=== PATIENT | female | born 1960 | race Caucasian/White ===

== ENCOUNTER 2023-08-17 10:16 | Emergency (ER) | payer BC, SELFPAY ==
[2023-08-17 10:45] VITALS: BP 137/74
[2023-08-17 11:07] LABS: % Basophils 0.3 % (0-2); % Eosinophils 1.3 % (0-6); % Immature Granulocytes 0.3 % (0-0.5); % Lymphocytes 15.5 % (20.5-51.1); % Monocytes 3.4 % (1.7-9.3); % Neutrophils 79.2 % (42.2-75.2); Absolute Eosinophils 0.1 10^3/uL (0-0.7); Absolute Monocytes 0.2 10^3/uL (0.1-0.6); Absolute Neutrophils 5.3 10^3/uL (1.4-6.5); Hematocrit 37.9 % (37.0-47.0); Hemoglobin 12.9 g/dL (12.0-16.0); Mean Corpuscular Hgb 27.4 pg (27.0-31.0); Mean Corpuscular Volume 80.5 fL (81.0-99.0); Mean Platelet Volume 10.1 fL (7.4-10.4); Nucleated Red Blood Cells % 0 %; Platelet Count 180 10^3/uL (130-400); Red Blood Cell Count 4.71 10^6/uL (4.20-5.40); Red Cell Dist. Width 13.5 % (11.5-14.5); White Blood Cell Count 6.7 10^3/uL (4.8-10.8)
[2023-08-17 11:21] LABS: ALT (SGPT) 40 U/L (0-35); AST (SGOT) 36 U/L (14-36); Albumin 4.2 g/dl (3.5-5.0); Alkaline Phosphatase 126 U/L (38-126); Blood Urea Nitrogen 16 mg/dl (7-17); Calcium 9.1 mg/dl (8.4-10.2); Carbon Dioxide 22 mmol/L (22-30); Chloride 105 mmol/L (98-107); Glucose 147 mg/dl (70-99); Potassium 4.1 mmol/L (3.5-5.1); Sodium 135 mmol/L (135-145); Total Bilirubin 0.4 mg/dl (0.2-1.3); Total Protein 6.7 g/dl (6.3-8.2); eGFR > 60.00
[2023-08-17 11:23] LABS: COVID-19 Antigen Negative (Negative)
[2023-08-17 11:33] LABS: Lactic Acid 1.3 mmol/L (0.7-2.0)
[2023-08-17 13:49] VITALS: BP 126/66
[2023-08-17] MEDS: NSS 1000 IV (14:31)
--- NOTE | 2023-08-17 14:40 | ED.GENMED ---
History of Present Illness
<Santa Mcdonnell NP - Last Filed: 08/18/23 08:25>
General
Chief Complaint: Cold/Flu/URI Symptoms
Source: patient and spouse
Exam Limitations: none
Time Seen by Provider: 08/17/23 12:13
Nursing documentation reviewed up to this point in time: agreed with except (no there for URI symptoms, rather generalized joint pains and body rash)
Travel History
Have you had any contact with someone who has COVID-19?: No
Do you have any symptoms of coronavirus? Fever > 100 degrees, chills, cough, shortness of breath, sore throat, loss of taste or smell, muscle aches, or headache?: Yes
Symptoms:: fever
History of Present Illness
History of Present Illness:
62 yo female with no significant past medical history states she is here for generalized body aches.
2 evenings ago she went out to dinner and noted that her right ring finger was swollen and sore, riding back home in the car for about 40 minutes she could hardly get out of the car due to pain in her legs. Yesterday 'everything started to blow
up.' She has developed pain and swelling in her hands, fingers, wrists, ankles, toes and her knees hurt. Yesterday she developed a rash on the anterior surface of her right thigh and her left forearm which has gradually spread to all her
extremities and her stomach, the back and face are spared. She states the rash is not painful and just a little itchy.
She denies fever or chills but on arrival her temperature was 101.0 and then at recheck it was 99.9. She has been alternating Tylenol and ibuprofen for the joint aches.
She has been having urgency to urinate the past 2 days but when she attempts to go only a little bit comes out. She denies dysuria or abdominal pain. She called her PCP yesterday for her urinary symptoms and was started on nitrofurantoin 100 mg
twice daily and she has had a total of 2 doses.
No recent travel or known exposures.
She saw her PCP earlier today and was ordered outpatient lab work but when the PCP noted that she could barely get up to walk due to pain in her legs she sent her here for evaluation.
Past History
<Santa Mcdonnell, DOUBLING MACHINE OPERATOR - Last Filed: 08/18/23 08:25>
Past History
ED Past Medical History: Other and Other
Social History
Alcohol: Occasional
Personal:
Living: with family
Employment: Employed
Review of Systems
<Santa Mcdonnell, DOUBLING MACHINE OPERATOR - Last Filed: 08/18/23 08:25>
Review of Systems
Allergies reviewed?: Yes
All Other Systems: ROS reviewed and negative except as documented in HPI and ROS
Constitutional: Reports fever; Denies chills
EENT: Denies sore throat
Respiratory: Denies trouble breathing
Cardiac: Denies chest pain
ABD/GI: Denies abdominal pain, nausea, vomiting or diarrhea
: Reports dark urine; Denies dysuria, difficulty voiding or urgency
Musculoskeletal: Reports joint pain and joint swelling (fingers, toes, ankles feel swollen); Denies edema
Skin: Reports itching (mildly itchy) and rash
Neurological: Reports no symptoms
Phy Exam
<Santa Mcdonnell, DOUBLING MACHINE OPERATOR - Last Filed: 08/18/23 08:25>
Physical Exam
Physical Exam:
GENERAL: No acute distress. A&Ox3.
CONSTITUTIONAL: Afebrile.
EYES: PERRL, conjunctivae normal
Neck: Supple
ENMT: moist mucus membranes, Pharynx nl
RESPIRATORY: Regular respirations, nonlabored, lungs clear.
CARDIOVASCULAR: Regular rate and rhythm, no murmurs, no rubs.
GI: Soft, nontender, normal BS
MUSCULOSKELETAL: Moves with ease. No edema. Mild swelling of fingers (subjective). Well perfused
SKIN: Warm, dry, diffuse rash over arms, legs and abdomen, some discoid shaped, some confluent, face and back are spared.
PSYCH: Normal mood and affect. Well kept, interactive and appropriate
NEUROLOGIC: Awake, alert and oriented. No focal neurological deficits
Course
<Santa Mcdonnell, DOUBLING MACHINE OPERATOR - Last Filed: 08/18/23 08:25>
Orders/Labs/Results
Orders:
Orders
08/17/23 10:58
C-Reactive Protein Urgent
Comment: ADD ON
COVID-19 Antigen Urgent
Source: Nasal Swab
Complete Blood Count/With Diff Urgent
Comprehensive Metabolic Panel Urgent
Erythrocyte Sed Rate Urgent
Comment: ADD ON
Ferritin Urgent
Comment: ADD ON
Lactic Acid Urgent
Blood Culture Urgent
KRISTA Source: Blood/Venous
Specimen Description:
Influenza A+B Rapid Molecular Urgent
KRISTA Source: Nasal Swab
Specimen Description:
08/17/23 14:18
Add On- LAB Urgent
Tests Added?: CRP, Sed rate, RA profile, Serum ferritin
08/17/23 14:19
Add On- LAB Urgent
Tests Added?: Lyme (B burgdoreri) PCR, Lyme Dis total AB w/ref immunoassay
08/17/23 14:20
Add On- LAB Urgent
Tests Added?: babesia microti PCR
08/17/23 14:21
0.9% Sodium Chloride 1000 ml [Nss] 1,000 ml IV BOLUS
08/17/23 14:30
Lyme Progressive Routine
Rheumatoid Agglutinin Routine
08/17/23 16:05
Ketorolac [Toradol] 15 mg IV NOW STA
08/17/23 17:02
Urinalysis Reflex To Culture Urgent
Date Specimen was Collected: 08/17/23
Time Specimen was Collected: 16:58
Urine Microscopic Reflex Cult Urgent
Urine Culture Urgent
KRISTA Source: U
Specimen Description:
Date Specimen was Collected: 08/17/23
Time Specimen was Collected: 16:58
Abnormal Lab Results
08/17/23 08/17/23
10:58 17:02
MCV 80.5 L fL
(81.0-99.0)
Absolute Lymphs (auto) 1.0 L 10^3/uL
(1.2-3.4)
Neutrophils % 79.2 H %
(42.2-75.2)
Lymphocytes % 15.5 L %
(20.5-51.1)
ESR 41 H mm/hour
(0-20)
Glucose 147 H mg/dl
(70-99)
Ferritin 416.0 H ng/ml
(11.1-264.0)
ALT 40 H U/L
(0-35)
C-Reactive Protein 248.60 H mg/L
(0.0-10.00)
Urine Ketones 3+ A
(Negative)
Urine Bilirubin 1+ A
(Negative)
Leukocyte Esterase Rfl Trace A
(Negative)
Urine Bacteria (Reflex) Many A
(Negative)
08/17/23 10:58
08/17/23 10:58
Vital Signs
Initial and Last Documented VS:
Initial Vital Signs
Temp Pulse Resp BP
101.0 F H 79 16 137/74
08/17/23 10:45 08/17/23 10:45 08/17/23 10:45 08/17/23 10:45
Last Documented Vital Signs
Temp Pulse Resp BP Pulse Ox
99.4 F 75 16 126/66 98
08/17/23 17:50 08/17/23 13:49 08/17/23 10:45 08/17/23 13:49 08/17/23 13:49
<Anna Coughlin MD - Last Filed: 08/17/23 16:07>
Orders/Labs/Results
Orders:
Orders
08/17/23 10:58
C-Reactive Protein Urgent
Comment: ADD ON
COVID-19 Antigen Urgent
Source: Nasal Swab
Complete Blood Count/With Diff Urgent
Comprehensive Metabolic Panel Urgent
Erythrocyte Sed Rate Urgent
Comment: ADD ON
Ferritin Urgent
Comment: ADD ON
Lactic Acid Urgent
Blood Culture Urgent
KRISTA Source: Blood/Venous
Specimen Description:
Influenza A+B Rapid Molecular Urgent
KRISTA Source: Nasal Swab
Specimen Description:
08/17/23 14:18
Add On- LAB Urgent
Tests Added?: CRP, Sed rate, RA profile, Serum ferritin
08/17/23 14:19
Add On- LAB Urgent
Tests Added?: Lyme (B burgdoreri) PCR, Lyme Dis total AB w/ref immunoassay
08/17/23 14:20
Add On- LAB Urgent
Tests Added?: babesia microti PCR
08/17/23 14:21
0.9% Sodium Chloride 1000 ml [Nss] 1,000 ml IV BOLUS
08/17/23 14:30
Lyme Progressive Routine
Rheumatoid Agglutinin Routine
08/17/23 16:05
Ketorolac [Toradol] 15 mg IV NOW STA
08/17/23 17:02
Urinalysis Reflex To Culture Urgent
Date Specimen was Collected: 08/17/23
Time Specimen was Collected: 16:58
Urine Microscopic Reflex Cult Urgent
Urine Culture Urgent
KRISTA Source: U
Specimen Description:
Date Specimen was Collected: 08/17/23
Time Specimen was Collected: 16:58
Abnormal Lab Results
08/17/23 08/17/23
10:58 17:02
MCV 80.5 L fL
(81.0-99.0)
Absolute Lymphs (auto) 1.0 L 10^3/uL
(1.2-3.4)
Neutrophils % 79.2 H %
(42.2-75.2)
Lymphocytes % 15.5 L %
(20.5-51.1)
ESR 41 H mm/hour
(0-20)
Glucose 147 H mg/dl
(70-99)
Ferritin 416.0 H ng/ml
(11.1-264.0)
ALT 40 H U/L
(0-35)
C-Reactive Protein 248.60 H mg/L
(0.0-10.00)
Urine Ketones 3+ A
(Negative)
Urine Bilirubin 1+ A
(Negative)
Leukocyte Esterase Rfl Trace A
(Negative)
Urine Bacteria (Reflex) Many A
(Negative)
08/17/23 10:58
08/17/23 10:58
Vital Signs
Initial and Last Documented VS:
Initial Vital Signs
Temp Pulse Resp BP
101.0 F H 79 16 137/74
08/17/23 10:45 08/17/23 10:45 08/17/23 10:45 08/17/23 10:45
Last Documented Vital Signs
Temp Pulse Resp BP Pulse Ox
99.4 F 75 16 126/66 98
08/17/23 17:50 08/17/23 13:49 08/17/23 10:45 08/17/23 13:49 08/17/23 13:49
<Santa Mcdonnell NP - Last Filed: 08/18/23 08:25>
MDM/Problems Addressed
Differential Diagnosis Includes:
viral illness, reactive arthritis, RA, discoid lupus
MDM/Problems Addressed:
62 yo female with no significant past medical history states she is here for generalized body aches.
2 evenings ago she went out to dinner and noted that her right ring finger was swollen and sore, riding back home in the car for about 40 minutes she could hardly get out of the car due to pain in her legs. Yesterday 'everything started to blow
up.' She has developed pain and swelling in her hands, fingers, wrists, ankles, toes and her knees hurt. Yesterday she developed a rash on the anterior surface of her right thigh and her left forearm which has gradually spread to all her
extremities and her stomach, the back and face are spared. She states the rash is not painful and just a little itchy.
She denies fever or chills but on arrival her temperature was 101.0 and then at recheck it was 99.9. She has been alternating Tylenol and ibuprofen for the joint aches.
She has been having urgency to urinate the past 2 days but when she attempts to go only a little bit comes out. She denies dysuria or abdominal pain. She called her PCP yesterday for her urinary symptoms and was started on nitrofurantoin 100 mg
twice daily and she has had a total of 2 doses.
No recent travel or known exposures.
She saw her PCP earlier today and was ordered outpatient lab work but when the PCP noted that she could barely get up to walk due to pain in her legs she sent her here for evaluation.
3:45 PM
CBC normal
CMP with no clinically significant abnormality
ESR mildly elevated 41
CRP elevated: 248.60
Ferritin elevated: 416.0
Rheumatoid factor and Lyme screens are pending.
Rapid COVID-negative
Dr. Coughlin and to evaluate patient. She discussed case with Rheumatology Dr. Campoverde who agrees pt can follow up as out pt. and will get her in. Agrees may be reactive arthritis to viral illness.
4:45 PM
Patient out of bed and ambulated to the bathroom slowly but steadily, states it is much more comfortable to walk after given Toradol
She is comfortable going home with her and following up with endocrinology Dr. Campoverde as an outpatient.
Since Toradol IV worked so well pt requesting this.
Rx for Toradol sent to her pharmacy
<Santa Mcdonnell DOUBLING MACHINE OPERATOR - Last Filed: 08/18/23 08:25>
*Critical Care Note
Total Time (30-74mins, 75-104mins- exclusive of procedures): Not Applicable
ED Attending Note
<Santa Mcdonnell DOUBLING MACHINE OPERATOR - Last Filed: 08/18/23 08:25>
-
Portions of this chart may have been created with voice recognition software.� Occasional wrong word or��sound alike� substitutions may have occurred due to the inherent limitations of voice recognition software.
<Anna Coughlin MD - Last Filed: 08/17/23 16:07>
ED Attending Note
Patient seen and examined by attending physician: Yes
I performed the substantive portion of visit, reviewed & personally made and approve the management plan that is documented in note by myself or MARISOL.: Yes
ED Attending Note:
8-year-old female presents emergency department with a 2-day history of polyarthralgia and swelling associated with low-grade fever and new rash. Patient has no prior medical history. Saw PCP today and was noted to have such difficulty walking
that was referred to the emergency department. Here, patient generally nontoxic but looks uncomfortable. Patient noted to have several different joints with associated swelling and pain with range of motion. Nonspecific diffuse maculopapular rash
noted on extremities and less so on the abdomen, no 'butterfly' rash, no rash involving face. No cough sore throat rhinorrhea urinary symptoms etc. no mucosal involvement. Case discussed with Dr. Campoverde, multiple photos sent as well as history
and physical and preliminary lab results. She suspects a reactive arthritis to a viral illness. If patient is able to be discharged she is happy to see as an outpatient. Long discussion with patient, we will give a dose of ketorolac here, check
her urine to decide whether or not continuing the antibiotics is appropriate, and then an ambulation trial. If patient is able to ambulate, she elects to go home with outpatient rheumatology follow-up.
Discharge Plan
Departure
Patient Disposition: Home (Routine Discharge)
Date of Disposition: 08/17/23
Time of Disposition: 17:29
Patient with high blood pressure during this ER visit?: No
Condition: Fair
Discharge Problem:
Arthralgia, Rash in adult
Instructions: Fever, Adult (DC), Viral Syndrome (DC), Joint Pain
Prescriptions:
New
ketorolac 10 mg tablet
10 mg PO TID PRN (Reason: Pain) 3 Days Qty: 10 0RF
No Action
diclofenac sodium 75 MG tablet,delayed release (DR/EC)
75 mg PO BID Qty: 10 0RF
Referrals:
Lisa Campoverde MD [Consulting Staff] - Next open appointment
Ale Neves MD [Family Provider] -
Activity Restrictions/Additional Instructions:
As we discussed, Ibuprofen 600 mg (with food) every 6 hours as needed for pain
Drink plenty of fluids/water
Stop the Nitrofurantoin until the urine culture is back. If the culture is positive then you can resume it.
Call Rheumatology doctor Dr. Campoverde tomorrow a.m. and inform of today's visit and make next available visit.
Return here at any time for fever above 100.5 NOT relieved with Tylenol or Ibuprofen, worsening pain or swelling, or feeling sicker in any way.
Interventions
Interventions:
*Risk Screen - Suicide Last Done: 08/17/23 16:22
*General Assessment Last Done: 08/17/23 16:22
*Neglect/Abuse Screening Last Done: 08/17/23 16:22
ED- Fall Risk Assessment Last Done: 08/17/23 17:50
*ED COVID-19 Vaccine History Last Done: 08/17/23 10:45
*Nursing Disposition Last Done: 08/17/23 17:50
ED- Pulmonary Assessment Last Done: 08/17/23 14:01
Discharge Date and Time
Discharge Date/Time: 08/17/23 17:51
Print Language: SLOVENIAN
[2023-08-17 15:12] LABS: Erythrocyte Sed Rate 41 mm/hour (0-20)
[2023-08-17] MEDS: TORADOL 15 MG IV (16:11)
[2023-08-17 17:12] LABS: Urine Albumin Trace (Neg - Trace); Urine Bilirubin 1+ (Negative); Urine Character Clear (Clear); Urine Color Yellow; Urine Glucose Negative (Negative); Urine Ketone 3+ (Negative); Urine Leukocyte Trace (Negative); Urine Nitrite Negative (Negative); Urine Occult Blood Negative (Negative); Urine Urobilinogen 1+ (Neg - 1+)
[2023-08-17 17:27] LABS: Urine Mucus Many
[2023-08-17 17:28] LABS: Urine Bacteria Many (Negative); Urine Red Blood Cell 0-2 /HPF (0-2)
== END 2023-08-17 17:51 | disposition home or self-care (01) ==
LOC: EMR 10:16
PROVIDERS: Emergency Medicine; Registered Nurse; EMERGENCY PHYSICIAN Emergency Medicine; FAMILY PHYSICIAN Internal Medicine
DX: R21 Rash and other nonspecific skin eruption (principal); M25.59 Pain in other specified joint; Z11.52 Encounter for screening for COVID-19
CPT/HCPCS: 99284; 96374; 96361; 80053; 81003; 81015; 82728; 83605; 85025; 85652; 86140; 86430; 86618; 87040; 87086; 87502; 87811